=== PATIENT | male | born 1980 | race Caucasian/White ===

== ENCOUNTER → 2017-01-08 | Day surgery (SDC) | payer BC, OTHER ==
[~2017-01-08] MED LIST: Dextrose 5%-Lactated Ringers 1,000 ML IV SCH; Glycopyrrolate 0.2 MG/ML 2 ML SDV IVPUSH ONE; Midazolam 1 MG/ML 2 ML SDV ONE; Pantoprazole 40 MG Vial IVPUSH ONE; Propofol 200 MG/20 ML SDV ONE; fentaNYL 100 MCG/2 ML SDV ONE
[2017-01-08 11:54] VITALS: BP 108/69
--- NOTE | 2017-01-15 12:07 | OR ---
DATE OF PROCEDURE: 01/08/2017 PREOPERATIVE DIAGNOSIS: 1. Upper abdominal pain. POSTOPERATIVE DIAGNOSES: 1. Upper abdominal pain associated with a small hiatal hernia with active gastroesophageal reflux disease and mild antral gastritis. 2. Normal colonoscopy exam. PROCEDURE PERFORMED: 1. Esophagogastroduodenoscopy with: a. Biopsies of esophagogastric junction for histologic evaluation. b. Biopsies of antrum for CLOtest. 2. Flexible colonoscopy. ANESTHESIA: IV sedation. INDICATION FOR PROCEDURE: This is a 36-year-old male presenting with some ongoing problems with upper abdominal pain. This was located more on the right side than on the midline or left area. At present, he is not on antisecretory medications. Plan is to do an upper GI endoscopy with biopsies as indicated along with colonoscopy, given the right-sided pain that he is having. Potential risks of the procedure including bleeding and perforation were discussed, and the patient wishes to proceed. DETAILS OF PROCEDURE: The patient was taken to the operating room, placed in a left lateral decubitus position. IV sedation was administered, after which the upper GI endoscope was passed orally through the length of the esophagus and into the stomach with retroflexed view of the fundus and through the pyloric channel into the proximal duodenum. The patient was noted to have a small hiatal hernia but essentially wide open esophagogastric junction and quite active gastroesophageal reflux disease with there being one linear ulcer present, along with general inflammation near the distal esophagus. There was some possible upper extension of the gastroesophageal junction mucosal lining as well. The remainder of the stomach showed some mild antral gastritis. The pyloric channel and duodenum to the junction of the third and fourth portions were unremarkable. At this point, biopsies were taken from the antrum and sent for CLOtest for H. pylori. Multiple biopsies were then obtained from esophagogastric junction, sent for histologic evaluation. Minimal bleeding from the biopsy sites was seen and the procedure then concluded. Attention was then taken to the colonoscopy. The initial digital rectal exam was performed and was unremarkable. Colonoscope was then passed into the rectum with retroflexion revealing uncomplicated hemorrhoidal columns. The scope was eventually passed to the cecum. The prep was fair. There was mild amount of liquid and some solid stool present. Apart from that, however, there were no abnormalities noted and the scope was then withdrawn. The above findings were reconfirmed. Plan will be to start the patient on Protonix 40 mg IV in the recovery room and then 40 mg daily. We will see the patient back on 01/31/2017 to see how the medications are working. If he is still having the right-sided abdominal pain, we may consider ultrasound and/or HIDA scan at that point as well. Otherwise, we will see the patient back on 01/31/2017. Joshua Marmolejo MD /[id number]
== END ==
LOC: JP.SDS 08:00
PROVIDERS: ATTEND Surgery
DX: K21.0 Gastro-esophageal reflux disease with esophagitis (principal); K29.70 Gastritis, unspecified, without bleeding; K44.9 Diaphragmatic hernia without obstruction or gangrene
CPT/HCPCS: 43239; 45378; 87081; 88305; C9113; J2250; J2704; J3010; J7042; J3490

== ENCOUNTER 2023-09-07 14:34 | Emergency (ER) | payer MEDICAID ==
[2023-09-07 15:53] LABS: BASOPHILS ABSOLUTE AUTO 0.04 K/uL (0.00-0.10); BASOPHILS PERCENT AUTO 0.6 % (0.1-1.3); EOSINOPHILS ABSOLUTE AUTO 0.16 K/uL (0.00-0.40); EOSINOPHILS PERCENT AUTO 2.2 % (0.0-5.4); HEMATOCRIT 39.7 % (38.4-49.7); HEMOGLOBIN 13.7 g/dL (12.9-16.9); IMMATURE GRAN PERCENT AUTO 0.1 % (0.0-0.7); LYMPHOCYTES ABSOLUTE AUTO 1.71 K/uL (0.8-3.3); LYMPHOCYTES PERCENT AUTO 23.7 % (11.4-47.7); MEAN CORPUSCULAR HEMOGLOBIN 30.4 pg (31.6-35.5); MEAN CORPUSCULAR HGB CONC 34.5 g/dL (31.6-35.5); MEAN CORPUSCULAR VOLUME 88.2 fL (81.4-99.0); MONOCYTES ABSOLUTE AUTO 0.54 K/uL (0.20-0.90); MONOCYTES PERCENT AUTO 7.5 % (3.3-12.6); NEUTROPHILS ABSOLUTE AUTO 4.76 K/uL (1.0-7.6); NEUTROPHILS PERCENT AUTO 65.9 % (40.0-78.1); PLATELET COUNT,PLT 222 K/uL (130-375); WHITE BLOOD CELL COUNT,WBC 7.2 K/uL (3.2-11.0)
[2023-09-07 15:54] LABS: IMMATURE GRAN ABSOLUTE AUTO 0.01 K/uL (0.00-0.23)
[2023-09-07 16:16] LABS: PROTHROMBIN TIME 10.6 sec (9.2-10.6)
[2023-09-07 16:23] LABS: CALCIUM 8.8 mg/dL (8.5-10.1); EST CRCL DRUG DOSING (CG) 104.54 mL/min; MAGNESIUM 1.7 mg/dL (1.8-2.4); PHOSPHORUS 3.2 mg/dL (2.5-4.9); POTASSIUM,K 3.5 mmol/L (3.6-5.2); TROPONIN I HIGH SENSITIVITY 12.1 pg/mL (<=60.3)
[2023-09-07 16:24] LABS: ANION GAP 11.5 mmol/L (5.0-14.0)
[2023-09-07 17:26] VITALS: BP 116/73; PULSE 64
[2023-09-07 17:37] LABS: AMPHETAMINES SCREEN, URINE NEGATIVE (NEGATIVE); BARBITURATE SCREEN,URINE NEGATIVE (NEGATIVE); BENZODIAZEPINES SCREEN,URINE NEGATIVE (NEGATIVE); METHADONE SCREEN, URINE NEGATIVE (NEGATIVE); METHAMPHETAMINES SCREEN, URINE NEGATIVE (NEGATIVE); OXYCODONE SCREEN,URINE NEGATIVE (NEGATIVE); PROPOXYPHENE SCREEN,URINE NEGATIVE (NEGATIVE); THC SCREEN,URINE 50 NG/ML NEGATIVE (NEGATIVE)
== END 2023-09-07 18:08 | disposition home or self-care (01) ==
LOC: JP.ED 14:34
DX: R07.89 Other chest pain (principal); E87.6 Hypokalemia; E83.42 Hypomagnesemia; H66.93 Otitis media, unspecified, bilateral; Z91.011 Allergy to milk products; E66.9 Obesity, unspecified; Z68.33 Body mass index [BMI] 33.0-33.9, adult; Z79.899 Other long term (current) drug therapy
CPT/HCPCS: 36415; 71046; 71046-26; 80048; 80305-QW; 83735; 83880; 84100; 84484; 85025; 85379; 85610; 85730; 99285